=== PATIENT | female | born 1990 | race Two or more races ===

== ENCOUNTER 2022-06-29 20:33 | Emergency (ER) | payer OTHER ==
[~2022-06-29] VITALS: Ht 149.9 cm; Wt 48.2 kg
[2022-06-30 02:00] VITALS: BP 135/89
== END 2022-06-30 03:02 | disposition home or self-care (01) ==
LOC: EMS 20:33
DX: S83.92XA Sprain of unspecified site of left knee, initial encounter (principal); W22.8XXA Striking against or struck by other objects, initial encounter; Y93.89 Activity, other specified; Y92.89 Other specified places as the place of occurrence of the external cause; Y99.8 Other external cause status
CPT/HCPCS: 99283